=== PATIENT | female | born 1955 | race Caucasian/White ===

== ENCOUNTER → 2016-06-03 | Outpatient (CLI) | payer OTHER ==
[~2016-06-03] MED LIST: AGM500T PO; ALPR.5T PO; ALPRAZOLAM PO; ASCO10006 PO; ASCO1TAB22; ASPI-479; CA C1TAB74 PO; CA C1TAB84 PO; CALC-140 PO; CALC-9 PO; CALC1CAP21 PO; CALC500T55; CETI10TA20 PO; CITA10TA4 PO; CPR500T PO; CTLP20T PO; DRON2.5C10 PO; FAMO-119 PO; FLUT1AER INH; HCT25T; HYDR-3811 PO; LANS15CA16 PO; LISI1TAB6 PO; LSNP10T PO; MAGN400T26 PO; MELA10TA2 PO; MELA1TAB15 PO; MELA1TAB16 PO; MELA1TAB19 PO; MELA1TAB8; MELA5TAB21 PO; MELO-255; MIRA25TA PO; ONDA8TAB6 PO; OXYC1TAB87 PO; PROC10TA23 PO; RABE20TA5 PO; RALO60TA; ROSU10TA PO; SOLI10TA2 PO; UBID10CA5 PO; UBID200C31 PO; [UNRECOGNIZED DRUG - CODE] PO; co q 10
--- NOTE | 2016-06-03 18:06 | Diagnostic Imaging Report ---
INDICATION: Right renal cancer. PA and lateral chest obtained at 03:38 p.m. and compared with 12/06/2015. Heart and mediastinal silhouette are unremarkable. Port-A-Cath in the right chest wall is unchanged. There are surgical clips in the left axilla. There is no acute infiltrate or overt pulmonary nodular lesion. There is no pneumothorax or pleural fluid. IMPRESSION: Postoperative findings as above with no acute process in the chest visualized. Dictated by: Dictated on workstation # [id number]
== END ==
LOC: RAD 15:28
PROVIDERS: ATTEND Internal Medicine Hematology & Oncology
DX: C65.1 Malignant neoplasm of right renal pelvis (principal); N18.3 Chronic kidney disease, stage 3 (moderate); Z85.3 Personal history of malignant neoplasm of breast; Z85.53 Personal history of malignant neoplasm of renal pelvis
CPT/HCPCS: 71020

== ENCOUNTER → 2016-07-29 | Outpatient (CLI) | payer OTHER | LOC: RAD 08:01 | PROVIDERS: ATTEND Internal Medicine Hematology & Oncology | DX: C65.1 Malignant neoplasm of right renal pelvis (principal); C7A.1 Malignant poorly differentiated neuroendocrine tumors; N18.3 Chronic kidney disease, stage 3 (moderate); Z85.3 Personal history of malignant neoplasm of breast; Z85.53 Personal history of malignant neoplasm of renal pelvis | CPT/HCPCS: 71250; 74176 ==

== ENCOUNTER → 2016-07-31 | Outpatient (CLI) | payer OTHER ==
[~2016-07-31] VITALS: Ht 170.2 cm; Wt 60.3 kg
[2016-07-31 18:25] VITALS: BP 152/96
== END ==
LOC: EUOP 18:06
PROVIDERS: ATTEND Family Medicine
DX: R93.8 Abnormal findings on diagnostic imaging of other specified body structures (principal)
CPT/HCPCS: 36000; 36415; 36591; 85652; 86140; 87040; J1642; 96523